=== PATIENT | male | born 1955 | race Caucasian/White ===

== ENCOUNTER 2016-10-03 12:59 | Outpatient (CLI) | payer BC ==
--- NOTE | 2016-10-03 14:12 | DIAGNOSTIC IMAGING REPORT ---
PROCEDURE: XR LUMBAR SPINE 2 OR 3 VIEWS INDICATION: RIB NECK LBP TECHNIQUE: Three views. COMPARISON: None. FINDINGS: Osseous structures and disc spaces are normal. No evidence of an acute process or fracture. IMPRESSION: 1. Negative lumbar spine.
--- NOTE | 2016-10-03 14:16 | DIAGNOSTIC IMAGING REPORT ---
PROCEDURE: XR CERVICAL SPINE 4 OR 5 VIEW INDICATION: RIB NECK LBP TECHNIQUE: Five views. COMPARISON: None. FINDINGS: There is a cervical degenerative kyphosis from C3-C7. There is spondylosis at C 5-6 and C6-7. IMPRESSION: 1. Cervical degenerative kyphosis C3-C7 and spondylosis at C5-6 and C6-7.
--- NOTE | 2016-10-03 14:19 | DIAGNOSTIC IMAGING REPORT ---
PROCEDURE: XR SHOULDER 2 OR MORE VW-LEFT INDICATION: RIB NECK LBP TECHNIQUE: Three views. COMPARISON: None. FINDINGS: Calcific tendonitis. There are fractures of ribs // in the on the left. IMPRESSION: 1. Calcific tendonitis
--- NOTE | 2016-10-03 14:25 | DIAGNOSTIC IMAGING REPORT ---
PROCEDURE: XR RIBS UNILATERAL - LEFT INDICATION: RIB NECK LBP TECHNIQUE: Two views of the left ribs with single PA view chest. COMPARISON: None. FINDINGS: LEFT RIBS: There are partially healed fractures of ribs 6-11 on the left. . IMPRESSION: 1. Old partially healed fractures of ribs 6 through 11 on the left.
== END 2016-10-03 23:00 | disposition home or self-care (01) ==
LOC: XR SRH 12:59
DX: R07.81 Pleurodynia (principal); M54.2 Cervicalgia; M54.5 Low back pain